=== PATIENT | female | born 1985 | race Caucasian/White ===

== ENCOUNTER 2016-11-06 18:43 | Emergency (ER) | payer BC ==
[2016-11-06 19:59] VITALS: BP 138/65
[2016-11-06] MEDS ORDERED: Sulfamethox/Trimethoprim DS 800/160* TAB PO ONE ×3 (21:23)
[2016-11-06] MEDS ORDERED: Phenazopyridine TAB* 100 MG PO ONE (21:24)
--- NOTE | 2016-11-07 06:55 | UC ---
Complaint Female HPI - HPI Summary HPI Summary: Patient is an otherwise healthy 31 yo F who presents to with CC of suprapubic pain, urgency, frequency, burning with urination and dark colored urine. She endorses frequent UTI's and states this feels similar. Denies fever or back pain. Symptoms have been present for 2-3 days and are becoming worse. She states she has had slight warmth, but denies known fever. Today, no fever on arrival to . She has not allergies, takes no medications and denies N/V/C/D. - History Of Current Complaint Chief Complaint: UCGU Stated Complaint: URINARY Time Seen by Provider: 11/06/16 19:25 Hx Obtained From: Patient Hx Last Menstrual Period: 10/23/16 ?: No Onset/Duration: Sudden Onset Timing: Intermittent, Lasting Minutes Severity Initially: Moderate Severity Currently: Moderate Pain Intensity: 2 Pain Scale Used: 0-10 Numeric Character: Burning Aggravating Factor(s): Urination Alleviating Factor(s): Nothing - Risk Factors Ectopic Risk Factor: Negative Ovarian Torsion Risk Factor: Reproductive Age - Allergies/Home Medications Allergies/Adverse Reactions: Allergies Allergy/AdvReac Type Severity Reaction Status Date / Time No Known Allergies Allergy Verified 11/06/16 19:59 Home Medications: Home Medications Cranberry (Vaccinium Macrocarp [Cranberry] 1,000 mg PO ONCE PRN 11/06/16 [ History Confirmed 11/06/16] PMH/Surg Hx/FS Hx/Imm Hx Previously Healthy: Yes - Surgical History Surgical History: Yes Surgery Procedure, Year, and Place: tonsils and adenoids, 07/30/14 - Social History Occupation: Employed Full-time Lives: With Family Alcohol Use: Rare Substance Use Type: None Smoking Status (MU): Never Smoked Tobacco Review of Systems Constitutional: Negative Skin: Negative Respiratory: Negative Cardiovascular: Negative Genitourinary: Dysuria, Frequency, Urgency Motor: Negative Neurological: Negative Psychological: Negative All Other Systems Reviewed And Are Negative: Yes Physical Exam Triage Information Reviewed: Yes Appearance: Well-Appearing, Well-Nourished Vital Signs: Initial Vital Signs Temp 98.1 F 11/06/16 19:53 Pulse 66 11/06/16 19:53 Resp 16 11/06/16 19:53 BP 138/65 11/06/16 19:53 Pulse Ox 100 11/06/16 19:53 Vital Signs Reviewed: Yes Eye Exam: Normal Eyes: Positive: Conjunctiva Clear ENT Exam: Normal Respiratory Exam: Normal Respiratory: Positive: Chest non-tender, Lungs clear, Normal breath sounds Cardiovascular Exam: Normal Cardiovascular: Positive: RRR Abdominal Exam: Normal Abdomen Description: Positive: Nontender Musculoskeletal Exam: Normal Musculoskeletal: Positive: Strength Intact, ROM Intact Psychological: Positive: Normal Response To Family Skin Exam: Normal Complaint Female Dx - Course Course Of Treatment: UA shows leuks and WBC's. Prescribe bactrim and pyridium. Patient OK with meds and follow up with PCP. If fever develops, come back to . - Differential Dx/Diagnosis Differential Diagnosis/HQI/PQRI: Cervicitis, Pelvic Inflammatory Disease, Ureteral Stone, Urinary Tract Infection Provider Diagnoses: UTI Discharge - Discharge Plan Condition: Stable Disposition: HOME Prescriptions: Phenazopyridine TAB* [Pyridium 100 mg TAB*] 100 mg PO TID #12 tab Sulfamethox/Trimethoprim DS* [Bactrim DS 800/160 TAB*] 1 tab PO DAILY #4 tab MDD 2 Patient Education Materials: Urinary Tract Infection in Women (ED) Referrals: Family [facility] [Primary Care Provider] - Additional Instructions: Dx. Urinary Tract Infection Drink plenty of fluids. Supplement with cranberry or galeano juice. You may also take an over the counter cranberry supplement. If you have any questions about this, you may ask your pharmacist. If your symptoms have not improved in 1-2 days, please return to , the emergency room, or call your PCP. Please take any medications prescribed to you as directed. Pyridium: This medication is used to treat pain, burning, increased urination, and increased urge to urinate. These symptoms are usually caused by infection, injury, surgery, catheter, or other conditions that irritate the lower urinary tract. Pyridium will treat the symptoms of a urinary tract infection, but this medication does not treat the actual infection. Take the antibiotic that your doctor prescribes to treat your infection. Pyridium will most likely darken the color of your urine to an orange or red color. This is a normal effect and is not cause for alarm unless you have other symptoms such as pale or yellowed skin, fever, stomach pain, nausea, and vomiting. Darkened urine may also cause stains to your underwear, which may or may not be removed by laundering. It can also permanently stain soft contact lenses, and you should not wear them while taking this medicine.
== END 2016-11-06 21:41 | disposition home or self-care (01) ==
LOC: UCCORT 18:43
DX: N39.0 Urinary tract infection, site not specified (principal); Z87.440 Personal history of urinary (tract) infections
CPT/HCPCS: 81003; 87077; 87086; 87186; 99213; A9270-GY; G0463